=== PATIENT | female | born 1995 | race Caucasian/White ===

== ENCOUNTER 2021-04-23 09:49 | Outpatient (CLI) | payer BC, OTHER | END 2021-04-23 09:50 | disposition home or self-care (01) | LOC: DTY/OP 09:49 | PROVIDERS: ATTEND Surgery | DX: E66.01 Morbid (severe) obesity due to excess calories (principal); Z68.41 Body mass index [BMI] 40.0-44.9, adult | CPT/HCPCS: 97802 ==

== ENCOUNTER 2021-05-21 13:08 | Outpatient (CLI) | payer BC, OTHER | END 2021-05-21 13:09 | disposition home or self-care (01) | LOC: DTY/OP 13:08 | PROVIDERS: ATTEND Surgery | DX: E66.01 Morbid (severe) obesity due to excess calories (principal) | CPT/HCPCS: 97802 ==

== ENCOUNTER 2021-08-02 09:30 | Inpatient (IN) | payer BC, OTHER ==
[2021-08-03 09:50] VITALS: BMI 44.2
[2021-08-05] MEDS ORDERED: Heparin 5,000 UNITS/ML VIAL ONE (10:44)
[2021-08-05] MEDS ORDERED: Fentanyl 250 MCG/5 ML VIAL ONE ×2 (12:14→14:32)
[2021-08-05] MEDS ORDERED: SUGAMMADEX SODIUM 200 MG/2 ML VIAL ONE (12:14)
[2021-08-05] MEDS ORDERED: Famotidine/PF 20 mg/2ml Vial ONE (12:14)
[2021-08-05] MEDS ORDERED: Xylocaine 1% w/ Epi 1:100K 10 ML VIAL ONE (12:26)
[2021-08-05] MEDS ORDERED: Bupivacaine 0.25% HCL 30 ML VIAL ONE (12:26)
[2021-08-05] MEDS ORDERED: PHENYLEPHRINE-NS 100 MCG/ML 10 ML SYRINGE ONE (13:10)
[2021-08-05] MEDS ORDERED: Rocuronium Bromide 10 MG/ML (10ML VIAL) ONE (13:10)
[2021-08-05] MEDS ORDERED: Ondansetron PF 4 MG/2 ML Vial ONE (13:10)
[2021-08-05] MEDS ORDERED: Lidocaine 1% PF 5 ML VIAL ONE (13:10)
[2021-08-05] MEDS ORDERED: Dexamethasone 20 MG/5 ML VIAL ONE (13:10)
[2021-08-05] MEDS ORDERED: PROPOFOL 200 MG/20 ML VIAL ONE (13:10)
[2021-08-05] MEDS ORDERED: Ondansetron PF 4 MG/2 ML Vial IVP PRN ×2 (14:19→14:59)
[2021-08-05] MEDS ORDERED: Dextrose 50% Abboject 50 ML SYRINGE SLOW IVP PRN (14:19)
[2021-08-05] MEDS ORDERED: Dextrose 5% in Water 1,000 ML IV PRN (14:19)
[2021-08-05] MEDS ORDERED: diphenhydrAMINE 50 MG/ML VIAL IVP PRN ×2 (14:19→14:59)
[2021-08-05] MEDS ORDERED: hydrALAZINE 20 MG/ML VIAL SLOW IVP PRN (14:19)
[2021-08-05] MEDS ORDERED: Promethazine HCl 25 MG/ML VIAL IM PRN ×3 (14:19→14:59)
[2021-08-05] MEDS ORDERED: Hydrocodone-Acetamin 15 ML UDCUP PO PRN (14:19)
[2021-08-05] MEDS ORDERED: Promethazine HCl 25 MG/ML VIAL IVPB PRN (14:35)
[2021-08-05] MEDS ORDERED: Morphine Sulfate 2 MG/ML SYRINGE SLOW IVP PRN (14:35)
[2021-08-05] MEDS ORDERED: Ondansetron HCl/PF 4 MG/2 ML Vial IVP PRN (14:35)
[2021-08-05] MEDS ORDERED: Ketorolac Tromethamine 30 MG/ML VIAL IVP PRN (14:35)
[2021-08-05] MEDS ORDERED: PACU-Morphine 4MG/ML VIAL SLOW IVP PRN (14:35)
[2021-08-05] MEDS ORDERED: Meperidine HCl/PF 25 MG/ML VIAL SLOW IVP PRN (14:35)
[2021-08-05] MEDS ORDERED: HYDROmorphone 2 MG/ML VIAL SLOW IVP PRN (14:35)
[2021-08-05] MEDS ORDERED: Promethazine HCl 25 MG/ML VIAL ONE (14:46)
[2021-08-05] MEDS ORDERED: fentaNYL Citrate/PF 2,000 MCG in Sodium Chloride 0.9% 60 ML IV PRN (14:59)
[2021-08-05] MEDS ORDERED: Naloxone HCl 0.4 mg/ml Vial IV PRN (14:59)
[2021-08-05] MEDS ORDERED: Zolpidem Tartrate 5 MG TAB PO PRN (14:59)
[2021-08-05] MEDS ORDERED: diphenhydrAMINE 25 MG CAP PO PRN (14:59)
[2021-08-05] MEDS ORDERED: diphenhydrAMINE 50 MG/ML VIAL IM PRN (14:59)
[2021-08-05] MEDS ORDERED: Communication Order-Pharmacy FS SCH (15:00)
[2021-08-05] MEDS: D5 1/2 NS w/20 mEq KCL 1,000 ML IV SCH ×2 (17:42→22:50)
[2021-08-05] MEDS: Ketorolac Tromethamine 30 MG/ML VIAL IVP SCH ×2 (18:23→23:01)
[2021-08-05] MEDS: CEFAZOLIN 2 GM, IV Admixture Fee-Chemo 1 UNITS in Sodium Chloride 0.9% 100 ML IVPB SCH (22:47)
[2021-08-06] MEDS: Ketorolac Tromethamine 30 MG/ML VIAL IVP SCH (05:34)
[2021-08-06] MEDS: CEFAZOLIN 2 GM, IV Admixture Fee-Chemo 1 UNITS in Sodium Chloride 0.9% 100 ML IVPB SCH (05:34)
[2021-08-06 05:58] LABS: #Monocytes 0.9 thou/uL (0.11-0.59); %Basophils 0.3 % (0.0-1.0); %Eosinophils 0.1 % (0.0-10.0); %Lymphocytes 7.4 % (21.0-51.0); %Monocytes 6.1 % (0.0-10.0); %Neutrophils 86.1 % (42.0-75.0); Hemoglobin 13.8 g/dL (12.0-16.0); Mean Corpuscular HGB CONC 33.1 g/dL (32.0-36.0); Mean Corpuscular Hemoglobin 30.1 pg (27.0-31.0); Mean Platelet Volume 9.4 fL (7.4-10.4); Platelet Count 221 thou/uL (130-400); RBC Distribution Width 12.8 % (11.5-14.5); Red Blood Cell (RBC) Count 4.58 mill/uL (4.20-5.40)
[2021-08-06] MEDS ORDERED: Hydrocodone-Acetamin 15 ML UDCUP PO PRN (06:02)
[2021-08-06] MEDS: D5 1/2 NS w/20 mEq KCL 1,000 ML IV SCH (06:04)
[2021-08-06 06:15] LABS: Anion Gap 16 mmol/L (10-20); BUN (Urea Nitrogen) Less than 4 mg/dL (7.0-18.7); Calc. Creatinine Clearance 226 mL/min (70-130); Carbon Dioxide 19 mmol/L (22-29); Chloride 103 mmol/L (98-107); Glucose 173 mg/dL (70-105); Sodium 134 mmol/L (136-145)
[2021-08-06 08:45] VITALS: BP 137/90; TEMP 98.2
[2021-08-06] MEDS ORDERED: Pantoprazole 40 MG VIAL IVP SCH (09:00)
[2021-08-06] MEDS ORDERED: Enoxaparin Sodium 40 MG/0.4 ML SYRINGE SC SCH (09:00)
== END 2021-08-06 11:04 | disposition home or self-care (01) | DRG 621 ==
LOC: EDSTATUS 09:30 → SURG A 08-05 09:34
PROVIDERS: ADMIT Surgery; ATTEND Surgery
PROC: 0DB64Z3 Excision of Stomach, Percutaneous Endoscopic Approach, Vertical (ICD-10-PCS; principal; 2021-08-05)
DX: E66.01 Morbid (severe) obesity due to excess calories (principal); Z68.41 Body mass index [BMI] 40.0-44.9, adult; Z01.818 Encounter for other preprocedural examination; Z20.822 Contact with and (suspected) exposure to COVID-19
CPT/HCPCS: 36415; 71046; 80048; 80053; 83036; 84703; 85025; 88307; 93005; C1889; C9113; J0690; J1100; J1644; J1650; J1885; J2405; J2550; J2704; J3010; J3480; J3490; S0020; S0028; U0003; U0005

== ENCOUNTER 2021-08-02 09:39 | Outpatient (CLI) | payer BC, OTHER ==
[2021-08-02 11:11] LABS: BHCG - Serum Negative (NEGATIVE); Pregs Control Background? CLEAR/WHITE (CLR/WHITE); Pregs Control Bar Appear? YES (CONTROL BAR)
[2021-08-02 11:16] LABS: #Basophils 0.1 10x3/uL (0.0-0.2); #Eosinphils 0.2 10x3/uL (0.0-0.5); #Monocytes 0.6 10x3/uL (0.0-1.1); #Neutrophils 6.4 10x3/uL (1.5-8.4); %Basophils 0.5 % (0.0-2.0); %Eosinophils 2.5 % (0.0-6.0); %Lymphocytes 20.3 % (18.0-47.0); %Monocytes 6.3 % (0.0-10.0); %Neutrophils 70.1 % (40.0-75.0); Hemoglobin 14.4 g/dL (12.0-15.5); Mean Corpuscular HGB CONC 32.7 g/dL (32.0-36.0); Mean Corpuscular Hemoglobin 28.9 pg (27.0-33.0); Mean Corpuscular Volume 88.6 fl (81.6-98.3); Platelet Count 280 10x3/uL (150-450); RBC Distribution Width 14.4 % (11.5-14.5); Red Blood Cell (RBC) Count 4.98 10x6/uL (3.90-5.03); White Blood Cell (WBC) Count 9.1 10x3/uL (3.5-10.5)
[2021-08-02 11:37] LABS: ALT (SGPT) 16 U/L (8-55); AST (SGOT) 15 U/L (5-34); Albumin 4.3 g/dL (3.5-5.0); Alkaline Phosphatase 54 U/L (40-110); Anion Gap 18 mmol/L (10-20); BUN (Urea Nitrogen) 8 mg/dL (7.0-18.7); Bilirubin, Total 0.3 mg/dL (0.2-1.2); Calc. Creatinine Clearance 0 mL/min (70-130); Calcium 9.6 mg/dL (7.8-10.44); Carbon Dioxide 23 mmol/L (22-29); Chloride 104 mmol/L (98-107); Globulin 2.8 g/dL (2.4-3.5); Glucose 76 mg/dL (70-105); Potassium 4.7 mmol/L (3.5-5.1); Protein, Total 7.1 g/dL (6.0-8.3); Sodium 140 mmol/L (136-145)
[2021-08-02 14:33] LABS: Hemoglobin A1c 5.1 % (4.0-6.0)
[2021-08-02 21:48] LABS: SARS-CoV-2 PCR by NAA Not Detected (NotDetected)
== END 2021-08-02 09:40 | disposition home or self-care (01) ==
LOC: LABBT 09:39
PROVIDERS: ATTEND Surgery
DX: Z01.818 Encounter for other preprocedural examination (principal); E66.01 Morbid (severe) obesity due to excess calories; Z20.822 Contact with and (suspected) exposure to COVID-19
CPT/HCPCS: 71046; 80053; 83036; 84703; 85025; 93005; 93010; U0003; U0005